=== PATIENT | male | born 1945 | race Caucasian/White ===

== ENCOUNTER → 2017-01-01 | Day surgery (SDC) | payer MEDICARE, OTHER ==
[~2017-01-01] VITALS: Ht 188 cm; Wt 96.8 kg
[~2017-01-01] MED LIST: ALTACE5 MG PO; AMOXICILLIN500 M1 PO; PRAVACHOL40 MG PO; VITAMIN D31000 UNI1 PO; ZIAC 5-6.25 MG1 EACH PO
== END ==
LOC: GPOC 12-27 14:00 → GEND 06:48
PROC: 0DBN8ZX Excision of Sigmoid Colon, Via Natural or Artificial Opening Endoscopic, Diagnostic (ICD-10-PCS; principal; 2017-01-01)
DX: Z12.11 Encounter for screening for malignant neoplasm of colon (principal); D12.5 Benign neoplasm of sigmoid colon; K57.30 Diverticulosis of large intestine without perforation or abscess without bleeding; Z86.010 Personal history of colon polyps; I10 Essential (primary) hypertension; E78.00 Pure hypercholesterolemia, unspecified; Z79.2 Long term (current) use of antibiotics; Z79.899 Other long term (current) drug therapy; Z88.8 Allergy status to other drugs, medicaments and biological substances
CPT/HCPCS: J7030